=== PATIENT | male | born 1960 | race Caucasian/White ===

== ENCOUNTER 2022-05-19 18:32 | Emergency (ER) | payer MEDICAID ==
[~2022-05-19] VITALS: Ht 177.8 cm; Wt 97.5 kg
[2022-05-19] MEDS ORDERED: TAMS-3 PO (18:53)
[2022-05-19] MEDS ORDERED: METF-440 PO (18:53)
[2022-05-19] MEDS ORDERED: DIVA-78 PO ×2 (18:53)
[2022-05-19] MEDS ORDERED: LISI10TA29 PO (18:53)
[2022-05-19] MEDS ORDERED: ALLO100T56 PO (18:53)
[2022-05-19] MEDS ORDERED: INSU100I43 (18:53)
[2022-05-19] MEDS ORDERED: FOLI1TAB27 PO (18:53)
[2022-05-19] MEDS ORDERED: ATOR10TA PO (18:53)
[2022-05-19] MEDS ORDERED: QUET300T2 PO (18:53)
[2022-05-19] MEDS ORDERED: TRAZ-257 PO (18:53)
[2022-05-19 19:01] LABS: HEMATOCRIT 42.2 % (36.7-47.1); MEAN CORPUSCULAR HEMOGLOBIN 33.3 uug (23.8-33.4); MEAN CORPUSCULAR VOLUME 100.6 fL (73.0-96.2); PLATELET COUNT (AUTO) 200 K/uL (152-348)
--- NOTE | 2022-05-19 19:05 | NUR ---
Patient taken to CT by maria dolores Grajeda. Patient ambulated with steady gait.
[2022-05-19 19:06] LABS: CARBON DIOXIDE 28 mmol/L (21-32); CHLORIDE 103 mmol/L (98-107); CREATININE 1.2 mg/dL (0.6-1.3); GLUCOSE 117 mg/dL (74-106); POTASSIUM 3.9 mmol/L (3.5-5.1); UREA NITROGEN, BLOOD 13 mg/dL (7-18)
[2022-05-19 19:09] LABS: *BILIRUBIN,URIN NEGATIVE (NEGATIVE); *BLOOD, URINE NEGATIVE (NEGATIVE); *CLARITY,URINE CLEAR (CLEAR); *COLOR,URINE YELLOW (YELLOW); *KETONES,URINE NEGATIVE (NEGATIVE); *UROBILINOGEN,URINE 0.2 E.U./dl (NORMAL); LEUKOCYTE ESTERASE ,URINE NEGATIVE (NEGATIVE); NITRITE, URINE NEGATIVE (NEGATIVE); UGLUCOSE NEGATIVE (NEGATIVE)
[2022-05-19 19:12] LABS: ACETAMINOPHEN < 2.0 ug/mL (10-30); ALANINE AMINOTRANSFERASE 23 U/L (16-63); ALKALINE PHOSPHATASE 50 U/L (50-136); ASPARTATE AMINOTRANSFERASE 13 U/L (15-37); BILIRUBIN,DIRECT < 0.1 mg/dL (0.0-0.2); BILIRUBIN,TOTAL 0.2 mg/dL (0.2-1.0); TOTAL PROTEIN, SERUM 7.4 g/dL (6.4-8.2)
--- NOTE | 2022-05-19 19:13 | NUR ---
Patient is back from CT
--- NOTE | 2022-05-19 19:15 | NUR ---
REPORT RECEIVED FROM TAMMY PATEL.
[2022-05-19 19:16] LABS: ETHANOL < 3 MG/DL (0-0)
[2022-05-19 19:19] LABS: *AMPHETAMINE, URINE NEGATIVE (NEGATIVE); *CANNABINOID, URINE NEGATIVE (NEGATIVE); *COCCAINE, URINE NEGATIVE (NEGATIVE); *PHENCYCLIDINE SCREEN,URINE NEGATIVE (NEGATIVE)
[2022-05-19 19:20] LABS: THYROID STIMULATING HORMONE 1.358 mIU/mL (0.358-3.740)
--- NOTE | 2022-05-19 20:59 | NUR ---
called [facility]. attempt to inform that patient is discharged. no answer
--- NOTE | 2022-05-19 21:09 | NUR ---
called [employer] [facility] PATEL for [employer]
[2022-05-19 21:44] VITALS: BP 124/78
--- NOTE | 2022-05-19 21:44 | NUR ---
Patient discharged in stable condition via [employer]. Written and verbal after care instructions given. Patient verbalizes understanding of instructions. Stressed follow up or return to ER for worsening s/s. Patient is a/ox4, NAD noted.
== END 2022-05-19 21:45 | disposition home or self-care (01) ==
LOC: ER 18:39 → EDSEX 18:39 → ER 21:45
DX: Z00.00 Encounter for general adult medical examination without abnormal findings (principal); E11.9 Type 2 diabetes mellitus without complications; F17.290 Nicotine dependence, other tobacco product, uncomplicated; R51.9 Headache, unspecified; Z71.6 Tobacco abuse counseling; Z79.4 Long term (current) use of insulin; Z79.899 Other long term (current) drug therapy
CPT/HCPCS: 36415; 70450; 84443; 85025; A4663; G0480